=== PATIENT | male | born 1995 | race Caucasian/White ===

== ENCOUNTER 2019-05-22 04:56 | Emergency (ER) | payer SELFPAY ==
[~2019-05-22] VITALS: Ht 182.9 cm; Wt 95.3 kg
--- NOTE | 2019-05-22 05:05 | PHYS DOC ---
Adult General Chief Complaint Chief Complaint: ABDOMINAL PAIN HPI HPI 23-year-old male presents to the emergency department with complaints of abdominal pain. Patient states pain started around 7 PM after eating wings. He describes the pain as sharp, burning sensation. He's had no nausea, vomiting, fever or diarrhea. He presented to the ER as the pain is constant and has not let up. Nothing makes his pain worse, nothing makes his pain better. Patient denies any chest pain, shortness breath, headache or visual changes. (GREG CLARK MD) Review of Systems Review of Systems Constitutional: Denies fever or chills [] Respiratory: Denies cough or shortness of breath [] Cardiovascular: No additional information not addressed in HPI [] GI: + abdominal pain, no nausea, vomiting, bloody stools or diarrhea [] : Denies dysuria or hematuria [] Musculoskeletal: Denies back pain or joint pain [] Neurologic: Denies headache, focal weakness or sensory changes [] All other systems were reviewed and found to be within normal limits, except as documented in this note. (GREG CLARK MD) Current Medications Current Medications Current Medications Medications (Trade) Dose Ordered Sig/Sofya Start Time Stop Time Status Last Admin Dose Admin Dicyclomine HCl (Bentyl) 10 mg 1X ONCE 05/22/19 05:30 05/22/19 05:31 DC 05/22/19 05:26 10 MG Info (CONTRAST GIVEN -- Rx MONITORING) 1 each PRN DAILY PRN 05/22/19 06:00 05/24/19 05:59 Iohexol (Omnipaque 300 Mg/ml) 75 ml 1X ONCE 05/22/19 06:00 05/22/19 06:01 DC 05/22/19 05:54 75 ML Morphine Sulfate (Morphine Sulfate) 2 mg 1X ONCE 05/22/19 06:00 05/22/19 06:01 DC 05/22/19 06:01 2 MG Ondansetron HCl (Zofran) 4 mg 1X ONCE 05/22/19 06:00 05/22/19 06:01 DC 05/22/19 06:00 4 MG (PATRICK ZUNIGA MD) Allergies Allergies Allergies Coded Allergies Type Severity Reaction Last Updated Verified No Known Drug Allergies 05/22/19 No (PATRICK ZUNIGA MD) Physical Exam Physical Exam Constitutional: Well developed, well nourished, no acute distress, non-toxic appearance. [] HENT: Normocephalic, atraumatic, bilateral external ears normal, oropharynx moist, no oral exudates, nose normal. [] Eyes: PERRLA, EOMI, conjunctiva normal, no discharge. [] Cardiovascular:Heart rate regular rhythm, no murmur [] Lungs & Thorax: Bilateral breath sounds clear to auscultation [] Abdomen: Bowel sounds normal, soft, tenderness appreciated around the umbilicus, no evidence of mcburney point tenderness on exam, negative rovsings sign, no pulsatile masses. [] Skin: Warm, dry, no erythema, no rash. [] Neurologic: Alert and oriented X 3, no focal deficits noted. [] Psychologic: Affect normal, judgement normal, mood normal. [] (GREG CLARK MD) Current Patient Data Vital Signs Vital Signs Date Time Temp Pulse Resp B/P (MAP) Pulse Ox O2 Delivery O2 Flow Rate FiO2 05/22/19 06:18 55 14 146/76 (99) 97 Room Air 05/22/19 05:05 98.3 98.3 (PATRICK ZUNIGA MD) Lab Values Laboratory Tests Test 05/22/19 05:10 White Blood Count 9.5 x10^3/uL (4.0-11.0) Red Blood Count 5.56 x10^6/uL (4.30-5.70) Hemoglobin 15.7 g/dL (13.0-17.5) Hematocrit 46.3 % (39.0-53.0) Mean Corpuscular Volume 83 fL (79-100) Mean Corpuscular Hemoglobin 28 pg (25-35) Mean Corpuscular Hemoglobin Concent 34 g/dL (31-37) Red Cell Distribution Width 13.4 % (11.5-14.5) Platelet Count 249 x10^3/uL (140-400) Neutrophils (%) (Auto) 67 % (31-73) Lymphocytes (%) (Auto) 22 % (24-48) L Monocytes (%) (Auto) 8 % (0-9) Eosinophils (%) (Auto) 3 % (0-3) Basophils (%) (Auto) 1 % (0-3) Neutrophils # (Auto) 6.4 x10^3/uL (1.8-7.7) Lymphocytes # (Auto) 2.1 x10^3/uL (1.0-4.8) Monocytes # (Auto) 0.7 x10^3/uL (0.0-1.1) Eosinophils # (Auto) 0.2 x10^3/uL (0.0-0.7) Basophils # (Auto) 0.1 x10^3/uL (0.0-0.2) Sodium Level 141 mmol/L (136-145) Potassium Level 4.2 mmol/L (3.5-5.1) Chloride Level 103 mmol/L (98-107) Carbon Dioxide Level 30 mmol/L (21-32) Anion Gap 8 (6-14) Blood Urea Nitrogen 21 mg/dL (8-26) Creatinine 1.0 mg/dL (0.7-1.3) Estimated GFR (Cockcroft-Gault) 93.4 BUN/Creatinine Ratio 21 (6-20) H Glucose Level 107 mg/dL (70-99) H Calcium Level 9.6 mg/dL (8.5-10.1) Total Bilirubin 0.4 mg/dL (0.2-1.0) Aspartate Amino Transferase (AST) 24 U/L (15-37) Alanine Aminotransferase (ALT) 29 U/L (16-63) Alkaline Phosphatase 109 U/L (46-116) Total Protein 7.9 g/dL (6.4-8.2) Albumin 4.0 g/dL (3.4-5.0) Albumin/Globulin Ratio 1.0 (1.0-1.7) Laboratory Tests 05/22/19 05:10 Laboratory Tests 05/22/19 05:10 (PATRICK ZUNIGA MD) Lab Values Laboratory Tests Test 05/22/19 05:10 White Blood Count 9.5 x10^3/uL (4.0-11.0) Red Blood Count 5.56 x10^6/uL (4.30-5.70) Hemoglobin 15.7 g/dL (13.0-17.5) Hematocrit 46.3 % (39.0-53.0) Mean Corpuscular Volume 83 fL (79-100) Mean Corpuscular Hemoglobin 28 pg (25-35) Mean Corpuscular Hemoglobin Concent 34 g/dL (31-37) Red Cell Distribution Width 13.4 % (11.5-14.5) Platelet Count 249 x10^3/uL (140-400) Neutrophils (%) (Auto) 67 % (31-73) Lymphocytes (%) (Auto) 22 % (24-48) L Monocytes (%) (Auto) 8 % (0-9) Eosinophils (%) (Auto) 3 % (0-3) Basophils (%) (Auto) 1 % (0-3) Neutrophils # (Auto) 6.4 x10^3/uL (1.8-7.7) Lymphocytes # (Auto) 2.1 x10^3/uL (1.0-4.8) Monocytes # (Auto) 0.7 x10^3/uL (0.0-1.1) Eosinophils # (Auto) 0.2 x10^3/uL (0.0-0.7) Basophils # (Auto) 0.1 x10^3/uL (0.0-0.2) Sodium Level 141 mmol/L (136-145) Potassium Level 4.2 mmol/L (3.5-5.1) Chloride Level 103 mmol/L (98-107) Carbon Dioxide Level 30 mmol/L (21-32) Anion Gap 8 (6-14) Blood Urea Nitrogen 21 mg/dL (8-26) Creatinine 1.0 mg/dL (0.7-1.3) Estimated GFR (Cockcroft-Gault) 93.4 BUN/Creatinine Ratio 21 (6-20) H Glucose Level 107 mg/dL (70-99) H Calcium Level 9.6 mg/dL (8.5-10.1) Total Bilirubin 0.4 mg/dL (0.2-1.0) Aspartate Amino Transferase (AST) 24 U/L (15-37) Alanine Aminotransferase (ALT) 29 U/L (16-63) Alkaline Phosphatase 109 U/L (46-116) Total Protein 7.9 g/dL (6.4-8.2) Albumin 4.0 g/dL (3.4-5.0) Albumin/Globulin Ratio 1.0 (1.0-1.7) Laboratory Tests 05/22/19 05:10 Laboratory Tests 05/22/19 05:10 (GREG CLARK MD) EKG EKG [] (GREG CLARK MD) Radiology/Procedures Radiology/Procedures [] (GREG CLARK MD) Impressions: COMPARISON: None. FINDINGS: Lung windows through the visualized portions of the bases reveal mild atelectasis. Bone windows reveal no suspicious lesions. The liver, gallbladder, spleen, adrenal glands, pancreas and kidneys are unremarkable. There are no pathologically enlarged lymph nodes. The appendix is not inflamed. There is no small bowel obstruction. IMPRESSION: 1. No cause for acute pain is identified. *One or more of the following individualized dose reduction techniques were utilized for this examination: 1. Automated exposure control. 2. Adjustment of the mA and/or kV according to patient size. 3. Use of iterative reconstruction technique. Electronically signed by: Josie Leon MD (05/22/2019 6:31 AM) [id number] DICTATED and SIGNED BY: BUD LEON MD DATE: 05/22/19 0631 (PATRICK ZUNIGA MD) Course & Med Decision Making Course & Med Decision Making Pertinent Labs and Imaging studies reviewed. (See chart for details) []23-year-old male presents to the emergency department with complaints of abdominal pain. Patient states pain started around 7 PM after eating wings. He describes the pain as sharp, burning sensation. He's had no nausea, vomiting, fever or diarrhea. He presented to the ER as the pain is constant and has not let up. Nothing makes his pain worse, nothing makes his pain better. Patient denies any chest pain, shortness breath, headache or visual changes. Labs reviewed, no evidence of acute process identified. Patient provided with Bentyl 10 mg IM with no significant improvement. Given continued abdominal pain without a source, we'll plan for CT head and pelvis with contrast. Morphine 2 mg, Zofran 4 mg IV 1. Awaiting CT result passed care off to DR. ZUNIGA (GREG CLARK MD) Course & Med Decision Making ct neg pt having some burning pain periumbilical, rexam no rlq or ruq ttp. bentyl prescribed, he is better than when he came. return prec discussed in detail including migrating pain fever vomiting new symptoms or concerns (PATRICK ZUNIGA MD) Dragon Disclaimer Dragon Disclaimer This electronic medical record was generated, in whole or in part, using a voice recognition dictation system. (GREG CLARK MD) Departure Departure Impression: Primary Impression: Abdominal pain Disposition: HOME, SELF-CARE Condition: STABLE Referrals: NO PCP (PCP) Scripts Dicyclomine Hcl (DICYCLOMINE HCL) 10 Mg Capsule 1 CAP PO PRN Q6HRS PRN for PAIN, #20 CAP 0 Refills Prov: PATRICK ZUNIGA MD 05/22/19 GREG CLARK MD May 22, 2019 05:05 PATRICK ZUNIGA MD May 22, 2019 07:11
[2019-05-22 05:19] LABS: BASO # 0.1 x10^3/uL (0.0-0.2); BASO % 1 % (0-3); EOS # 0.2 x10^3/uL (0.0-0.7); EOS % 3 % (0-3); HEMATOCRIT 46.3 % (39.0-53.0); HEMOGLOBIN 15.7 g/dL (13.0-17.5); LYMPH # 2.1 x10^3/uL (1.0-4.8); LYMPH % 22 % (24-48); MEAN CORPUSCULAR HEMOGLOBIN 28 pg (25-35); MEAN CORPUSCULAR HGB CONC 34 g/dL (31-37); MEAN CORPUSCULAR VOLUME 83 fL (79-100); MONO # 0.7 x10^3/uL (0.0-1.1); MONO % 8 % (0-9); NEUT # 6.4 x10^3/uL (1.8-7.7); NEUT % 67 % (31-73); PLATELET COUNT 249 x10^3/uL (140-400); RED BLOOD COUNT 5.56 x10^6/uL (4.30-5.70); RED CELL DISTRIBUTION WIDTH 13.4 % (11.5-14.5); WHITE BLOOD COUNT 9.5 x10^3/uL (4.0-11.0)
[2019-05-22] MEDS ORDERED: DICYCLOMINE 20 MG/2 ML AMPUL. IM ONE (05:30)
[2019-05-22 05:38] LABS: CALCIUM 9.6 mg/dL (8.5-10.1); GFR 93.4; POTASSIUM 4.2 mmol/L (3.5-5.1)
[2019-05-22 05:44] LABS: TOTAL BILIRUBIN 0.4 mg/dL (0.2-1.0); TOTAL PROTEIN 7.9 g/dL (6.4-8.2)
[2019-05-22] MEDS ORDERED: IOHEXOL 300 MG/ML 100ML VIAL. IV ONE (06:00)
[2019-05-22] MEDS ORDERED: ONDANSETRON PF 4 MG/2 ML VIAL. IV ONE (06:00)
[2019-05-22] MEDS ORDERED: MORPHINE SULFATE 2 MG/ML VIAL. IV ONE (06:00)
[2019-05-22] MEDS ORDERED: CONTRAST GIVEN. MC PRN (06:00)
--- NOTE | 2019-05-22 06:34 | RAD ---
EXAM: CT ABDOMEN/PELVIS WITH CONTRAST. HISTORY: Abdominal pain. TECHNIQUE: Computed tomography of the abdomen and pelvis was performed after the intravenous administration of iodinated contrast. COMPARISON: None. FINDINGS: Lung windows through the visualized portions of the bases reveal mild atelectasis. Bone windows reveal no suspicious lesions. The liver, gallbladder, spleen, adrenal glands, pancreas and kidneys are unremarkable. There are no pathologically enlarged lymph nodes. The appendix is not inflamed. There is no small bowel obstruction. IMPRESSION: 1. No cause for acute pain is identified. *One or more of the following individualized dose reduction techniques were utilized for this examination: 1. Automated exposure control. 2. Adjustment of the mA and/or kV according to patient size. 3. Use of iterative reconstruction technique. Electronically signed by: Josie Leon MD (05/22/2019 6:31 AM) [id number]
[2019-05-22] MEDS ORDERED: DICY10CA3 PO (07:09)
[2019-05-22 07:10] VITALS: BP 149/70
== END 2019-05-22 07:17 | disposition home or self-care (01) ==
LOC: ER 04:56
DX: R10.9 Unspecified abdominal pain (principal)
CPT/HCPCS: 36415; 74177; 80053; 85025; 96372; 96374; 96375; 99285; J0500; J2270; J2405; Q9967